=== PATIENT | female | born 2000 | race Caucasian/White ===

== ENCOUNTER 2022-11-06 18:48 | Emergency (ER) | payer OTHER, SELFPAY ==
[2022-11-06 19:01] VITALS: BP 124/75; PULSE 79; RESP 18; TEMP 37.4; O2SAT 100
--- NOTE | 2022-11-06 19:26 | ED.EPISTAXIS ---
HPI - Epistaxis General Chief complaint: Epistaxis Stated complaint: Nose Bleed Time Seen by Provider: 11/06/22 19:27 Source: patient and RN notes reviewed Mode of arrival: ambulatory Limitations: no limitations History of Present Illness HPI Narrative: 22-year-old female presented for complaints of nosebleed today, which has since resolved prior to arrival. She reports the nosebleed started after coughing. Prior to the nosebleed she reports vision loss from the left eye which lasted for 15 minutes. States it started like a kaleidoscope, then turned black, and slowly returned. Subsequently she developed a headache which lasted about 3 hours. 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 Patient reports more frequent headaches and nosebleeds over the last few months. States several headaches are precipitated by vision changes. Currently denies headache pain, vision changes, photophobia, dizziness, nausea, vomiting, fevers or chills. Denies smoking or drug use. Denies nasal trauma, blowing, sneezing, drug use, or recent illness. States she was seen in an outside ER a few weeks ago for nosebleed as well as cp and sob; denies significant findings and was told to f/u with pcp, but she has not been able to as they are about one hour away. Related Data Home Medications Medication Instructions Recorded Confirmed norethindrone 1 mg-ethinyl tablet 11/06/22 estradiol 10 mcg (24)-iron 10 mcg(2) tablet (Lo Loestrin Fe) Allergies Allergy/AdvReac Type Severity Reaction Status Date / Time No Known Allergies Allergy Verified 11/06/22 19:00 Review of Systems Review of Systems: CONSTITUTIONAL: Denies malaise, chills, sweats, fever EYES: Denies visual changes, redness, or discharge ENT: Denies present epistaxis rhinorrhea, congestion, sinus pain, otalgia, sore throat CARDIOVASCULAR: Denies chest pain, palpitations, edema RESPIRATORY: Denies dyspnea GASTROINTESTINAL: Denies abdominal pain, nausea, vomiting, diarrhea SKIN: Denies rash or itching MUSCULOSKELETAL: denies myalgia NEUROLOGIC: Denies present headache Exam Narrative: GENERAL: well-appearing HEAD: Normocephalic EYES: PERRLA, EOMI; conjunctivae clear ENT: Mucous membranes moist. No epistaxis or dried blood in nostril. No apparent source of nosebleed. TMs pearly cottrell with dull light reflex bilaterally; no tragal tenderness. Oropharynx without lesions or exudate NECK: Supple. No lymphadenopathy CHEST: Clear to auscultation, breath sounds equal. HEART: Regular rate and rhythm. No murmur heard. SKIN: Warm, dry, no rash. NEURO: Alert and oriented x3. No focal deficits. Facial sensation intact. PSYCH: Normal mood and affect Course Course Emergency Course: Patient is aware of diagnosis, understands and agrees to treatment plan. Anticipatory guidance given. Patient agrees to follow-up as directed and is aware of reasons to seek care at the emergency department. Portions of this record may have been created with voice recognition software Level of Care: Express Care Visit Vital Signs Vital signs: Vital Signs Temperature 99.4 F 11/06/22 19:01 Pulse Rate 79 11/06/22 19:01 Respiratory Rate 18 11/06/22 19:01 Blood Pressure 124/75 11/06/22 19:01 Pulse Oximetry 100 11/06/22 19:01 Oxygen Delivery Room Air 11/06/22 19:01 Temperature 99.4 F 11/06/22 19:01 Pulse Rate 79 11/06/22 19:01 Respiratory Rate 18 11/06/22 19:01 Blood Pressure 124/75 11/06/22 19:01 Pulse Oximetry 100 11/06/22 19:01 Oxygen Delivery Room Air 11/06/22 19:01 reviewed MDM - Epistaxis MDM Narrative Medical decision making narrative: Suspect ocular migraine. Patient currently denies pain, vision changes, photophobia. No epistaxis upon arrival or during encounter. BP stable. Reports headaches and nosebleeds over recent months. Today's headache resolved with Advil. Reports she was recently evaluated in an ER without significant findings. Advised to f/u closely with
== END 2022-11-06 20:06 | disposition home or self-care (01) ==
PROVIDERS: Emergency Provider Nurse Practitioner Family
DX: R04.0 Epistaxis (principal); R51.9 Headache, unspecified
CPT/HCPCS: 99211; G0463

== ENCOUNTER 2023-03-14 01:45 | Emergency (ER) | payer OTHER, SELFPAY ==
--- NOTE | 2023-03-14 01:46 | ECG_ITS ---
Measurements Intervals [place] Rate: 85 P: 44 WI: 100 QRS: 66 QRSD: 94 T: -4 QT: 347 QTc: 414 Interpretive Statements SINUS RHYTHM WITH SHORT WI INTERVAL NORMAL ECG NO PREVIOUS ECG AVAILABLE FOR COMPARISON Electronically Signed On 03-14-2023 11:26:18 CDT by Ronnie Eastman M.D.
[2023-03-14 01:54] VITALS: BP 123/78; PULSE 82; RESP 16; TEMP 36.8; O2SAT 99
[2023-03-14 02:21] LABS: Basophils Absolute Auto 0.1 K/mm3 (0.0-0.1); Basophils Percent Auto 0.6 % (0.2-1.2); Eosinophils Absolute Auto 0.3 K/mm3 (0-0.3); Eosinophils Percent Auto 2.9 % (0-4.4); Hematocrit 42.4 % (37.0-47.0); Hemoglobin 13.9 g/dL (12.0-15.0); Immature Granulocyte Absolute 0.02 K/mm3 (0.00-0.031); Immature Granulocyte Percent A 0.2 % (0-0.5); Lymphocytes Absolute Auto 3.66 K/mm3 (0.9-3.2); Lymphocytes Percent Auto 36.3 % (18.3-44.2); Mean Corpuscular HGB Conc 32.8 g/dl (32-36); Mean Corpuscular Hemoglobin 28.9 pg (26-34); Mean Corpuscular Volume 88.1 fl (80-100); Mean Platelet Volume 10.3 fl (7.4-10.4); Monocytes Absolute Auto 1.1 K/mm3 (0.1-0.6); Monocytes Percent Auto 10.5 % (2.6-8.5); Neutrophils Percent Auto 49.5 % (45.5-73.1); Platelet Count Result 279 k/mm3 (150-375); Red Blood Count 4.81 M/mm3 (4.2-5.4); Red Cell Distribution Width 13.2 % (11.5-14.5); White Blood Count 10.1 K/mm3 (4.5-10.0)
[2023-03-14 02:32] LABS: Partial Thromboplastin Time 28.6 SECONDS (22.3-36.8)
[2023-03-14 02:40] LABS: Alanine Aminotransferase 38 U/L (6-35); Albumin Level 4.3 g/dL (3.5-5.1); Alkaline Phosphatase 59 U/L (38-126); Anion Gap 5 mmol/L (8-16); Aspartate Amino Transferase 33 U/L (14-36); Bilirubin,Total 0.3 mg/dL (0.2-1.3); Blood Urea Nitrogen 10 mg/dL (7-17); Calcium 8.9 mg/dL (8.4-10.2); Carbon Dioxide 28 mmol/L (22-30); Chloride 105 mmol/L (98-107); Estimated CRCL calculation 125 ml/min; Estimated Glomerular Filt Rate > 60; Glucose 110 mg/dL (65-110); Lipase 90 U/L (23-300); Potassium 3.5 mmol/L (3.4-5.0); Sodium 138 mmol/L (137-145)
[2023-03-14 02:56] LABS: Troponin I < 0.012 ng/mL (0.000-0.034)
--- NOTE | 2023-03-14 03:30 | PC.NURSE ---
Pt called for room, no answer
== END 2023-03-14 04:51 | disposition left against medical advice (07) ==
PROVIDERS: Emergency Provider Emergency Medicine
DX: R07.89 Other chest pain (principal)
CPT/HCPCS: 36415; 80053; 83690; 84484; 85025; 85610; 85730; 93005; 99199

== ENCOUNTER 2023-04-28 11:47 | Outpatient (CLI) | payer OTHER, SELFPAY ==
[2023-04-28 14:08] LABS: Cholesterol 238 mg/dL (0-200); HDL Direct 48 mg/dL; Triglycerides 241 mg/dL (<150)
[2023-04-28 14:19] LABS: LDL Cholesterol Direct 150 mg/dL
[2023-04-28 14:25] LABS: Beta HCG Quantitative < 2.39 mIU/ML
[2023-05-01 11:24] LABS: DHEA-Sulfate 302 mcg/dL (18-391)
[2023-05-02 17:14] LABS: FSH 9.4 mIU/mL (***); Progesterone 0.4 ng/mL (***)
[2023-05-04 20:12] LABS: Estradiol, Ultrasensitive 22 pg/mL
== END 2023-04-28 11:48 | disposition home or self-care (01) ==
LOC: ANHLAB 11:49
PROVIDERS: Visit Provider Obstetrics & Gynecology
DX: R63.5 Abnormal weight gain (principal); N92.6 Irregular menstruation, unspecified; L68.0 Hirsutism
CPT/HCPCS: 36415; 80061; 82627; 82670; 83001; 83498; 84144; 84443; 84702

== ENCOUNTER 2023-06-20 00:38 | Day surgery (SDC) | payer OTHER, SELFPAY ==
[2023-06-14 11:58] VITALS: BMI 28.1
--- NOTE | 2023-06-14 12:02 | PC.NURSE ---
Report to the Outpatient Waiting Room, entrance under the green pavilion located off [facility], at time 0915 on date 06/20/23. Planned Procedure Time: 1115. Time changes happen often and if your time is changed the preop area will call you the afternoon before. - You and your visitor will be asked to self-screen and do not enter if you have any COVID symptoms. - A mask is optional within the hospital at this time. Patients may have clear liquids (water, carbonated beverages, clear teas, apple juice) until 3 hours prior to surgery with a maximum of 20 ounces. - No food from midnight until time of surgery Take the following medications with a SIP of water the morning of surgery: CONTROL DO NOT STOP ANY OF YOUR OTHER PRESCRIPTION MEDICATIONS PRIOR TO SURGERY ?EXCEPT THE FOLLOWING Medications to discontinue per physician: N/A Date to take last dose: N/A Please no make-up, nail lebanese, hairspray, perfume, deodorant, or body powder the day of surgery. No jewelry (including any body piercings) or valuables the day of surgery, leave them at home. Please take a shower or bath the night before, or the morning of, surgery with an antibacterial soap. Wear comfortable, loose fitting clothing. - Jewelry must be removed prior to entering the operating room. Rings and piercings that are not removed may be cut off. - The hospital will not accept responsibility for valuables. - Please leave all valuables, including medications, at home the day of surgery. If you are going home after surgery, a licensed medical driver must drive you home. - NO public transportation without another adult if you receive anesthesia. - We recommend that an adult stay with you for 24 hours following discharge. - We also recommend that you do not drive, make important decision, drink alcoholic beverages, or take any drugs that were not prescribed by your health care provider for at least 24 hours after your discharge time. Follow any additional instructions given to you from your surgeon. If you or anyone in your household have experienced Covid symptoms in the past week, please notify your surgeon or the nurse liaison at the phone number below for possible testing. Telephone instructions given to PT Deanna SARMIENTO and asked if any additional questions and then verbalized understanding. Patient advised to call surgeon office or pre surgery nurse liaison [phone] if any additional questions.
--- NOTE | 2023-06-19 15:39 | PM.IMHP ---
H&P: HPI History of Present Illness Date/Time: 06/19/23 15:39 Chief Complaint: undesired future fertility Narrative: Leni is a 22yo P1001, who presents for surgery. She reports that she gained 100lbs in ; has been having issues since delivery of her son 3 years ago. She is on Lo Loestrin but takes it continuously to skip cycles. She reports her cycles were very painful. She reports hair growth on her face, neck, chest. She is sexually active. She no longer desires future fertility and is wanting to proceed with tubal. Review of Systems Constitutional: Constitutional: Denies chills, Denies fever(s) and Denies headache(s) Eyes: Eyes: Denies change in vision ENT: Denies dizziness and Denies headache(s) Cardiovascular: Cardiovascular: Denies chest pain and Denies dyspnea Respiratory: Respiratory: Denies cough and Denies dyspnea Gastrointestinal: Gastrointestinal: Denies abdominal pain and Denies change in stool character Genitourinary: Genitourinary: Reports abnormal menses, Reports pelvic pain, Denies vaginal discharge, Denies vaginal odor and Denies vaginal pruritus Neurologic: Denies dizziness and Denies headache(s) Psychiatric: Psychiatric: Denies anxiety and Denies depression [facility] Past Medical History Medical History IBS (irritable bowel syndrome) Family History Family History Other Heart disease Lung cancer Social History Social History Smoking status: Never smoker Alcohol intake: never Substance use: never Substance use type: does not use Lack of Transportation: No Lack of Food: Never True Current Housing: I Have Housing Concerned About Future Housing: No Difficulty Paying Gas/Electric Bills: No Difficulty Paying for Meds: No Currently Unemployed: No Education: High School Diploma/GED Difficulty w/ Childcare or Family Care: No Living arrangements: with family Additional living arrangements comments: boyfriend & son Occupation/Education: occupation 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 Gender identity (if verbalized by the patient): Female Sexual Orientation (if Verbalized by the Patient): Straight or Heterosexual Spiritual care concerns: No Meds Home Medications and Allergies Home Medications Medication Instructions Recorded Confirmed Type norethindrone 1 mg-ethinyl 1 tablet PO DAILY 05/19/23 06/14/23 History estradiol 20 mcg (21)-iron 75 mg (7) tablet (10/22 (28)) Allergies Allergy/AdvReac Type Severity Reaction Status Date / Time No Known Allergies Allergy Verified 06/14/23 11:57 Exam Const: General: cooperative, healthy appearing, comfortable and no acute distress Orientation/consciousness: patient oriented x3 Resp: Effort & Inspection: normal respiratory effort Cardio: Rate: regular rate GI: Inspection: normal to inspection GI Palp: No abdominal tenderness and Yes Soft to palpation : Other: deferred to OR Skin: General skin exam: normal color Neuro: General: patient oriented x3 Extrem: General: normal to inspection Psych: Appearance: grossly normal Affect: normal affect Attitude: cooperative Assessment and Plan Assessment and plan (1) Encounter for sterilization: Code(s): Z30.2 - Encounter for sterilization Status: Acute Plan - not all labs were completed; ones tested were normal--- 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 pt voiced understanding and realizes this is permanent sterilization - proceed with laparoscopic bilateral salpingectomy - Would also remove/fulgurate any endometrial implants if any endometriosis is noted
[2023-06-20] VITALS (9 sets, daily range): BP systolic 105–122; BP diastolic 61–82; PULSE 77–93; RESP 13–20; TEMP 36.5–36.7; O2SAT 95–100
--- NOTE | 2023-06-20 07:13 | WPDHPUPDATE1 ---
History and Physical Update Update Date/Time: 06/20/23 07:13 History and Physical has been reviewed, including an updated exam of the patient. There are NO changes in the patient's condition. Risks, benefits, and alternatives have been discussed and questions answered. Patient agrees to proceed with procedure.
--- NOTE | 2023-06-20 10:03 | P.PNAN_ITS ---
Anes - Initial Pre Proc Eval Procedure: Operation Date: 06/20/23 11:15 Proposed Procedures p Bilateral Laparoscopic Salpingectomy - Shara Santos MD Date/Time: 06/20/23 10:03 Surgeon: Shara Santos MD Pre Op Diagnosis: desires sterilization Patient Data Age: 22 Gender: F Height: 1.73 m Weight: 85 kg Allergies Allergy/AdvReac Type Severity Reaction Status Date / Time No Known Allergies Allergy Verified 06/20/23 09:57 Home Medications Medication Instructions Recorded Confirmed Type norethindrone 1 mg-ethinyl 1 tablet PO DAILY 05/19/23 06/20/23 History estradiol 20 mcg (21)-iron 75 mg (7) tablet (10/22 (28)) Patient hx anesthesia problems: none Family hx anesthesia problems: none Results Review: All pre-operative results and documents have been reviewed as part of the pre- operative evaluation. [facility] Past Medical History Medical History IBS (irritable bowel syndrome) Family History Family History Other Heart disease Lung cancer Social History Social History Smoking status: Never smoker Alcohol intake: never Substance use: never Substance use type: does not use Lack of Transportation: No Lack of Food: Never True Current Housing: I Have Housing Concerned About Future Housing: No Difficulty Paying Gas/Electric Bills: No Difficulty Paying for Meds: No Currently Unemployed: No Education: High School Diploma/GED Difficulty w/ Childcare or Family Care: No Living arrangements: with family Additional living arrangements comments: boyfriend & son Occupation/Education: occupation Additional occupation/education comments: [employer] Gender identity (if verbalized by the patient): Female Sexual Orientation (if Verbalized by the Patient): Straight or Heterosexual Spiritual care concerns: No Anes - Eval Final PreProcedure Day of Procedure 06/20/23 10:03 Patient weight: overweight Heart: regular rate and rhythm Lungs: clear to auscultation Airway: Mallampati scale class II Neurological: alert and oriented Last oral intake: >/= 8 hours ASA classification: II Emergent: no Anesthetic plan: proceed Anesthesia type and monitoring: general ETT and standard monitoring Results Review: All pre-operative results and documents have been reviewed as part of the pre- operative evaluation. Informed Consent: The patient's anesthetic plan and its attendant risks and benefits were discussed with the patient/family/POA. Questions were solicited and answers provided to the satisfaction of the patient/family/POA.
[2023-06-20] MEDS: KETOROLAC 15 MG/ML VIAL (*BKC) IV PUSH (10:45)
[2023-06-20] MEDS: LACTATED RINGERS 1,000 ML 30 ML IV CONT ×2 (10:45→12:33)
[2023-06-20] MEDS: ACETAMINOPHEN 500 MG TABLET 1000 MG PO (10:45)
[2023-06-20] MEDS: BUPIVACAINE/EPINEPHRINE 0.5% 30 ML VIAL INFILTRATE (11:41)
--- NOTE | 2023-06-20 11:48 | P.OP_ITS ---
Procedure Note - Detailed Date of Procedure 06/20/23 Pre-op Diagnosis desires sterilization Post-op Diagnosis Same Procedure Performed Laparoscopic bilateral salpingectomy Surgeon Shara Santos MD Anesthesia General and Local (20cc of 0.5% Marcaine w/ epi) Findings Uterus sounded to 8cm, normal appearing cervix, normal fallopian tubes and ovaries bilaterally. Small amount of adhesions of the colon to the left pelvic side wall which were taken down. Good hemostasis at end of case. Description of Procedure Leni was taken to the operating room where she was placed under general endotracheal anesthesia without complications. She was then prepped and draped in the usual sterile fashion in the dorsal lithotomy position with her legs in low Bassem stirrups and her arms tucked at her side with a strap over her chest. A time-out was performed and no preoperative antibiotics were indicated. My attention was turned down below where a bivalve speculum was then placed within the vagina where the cervix was easily identified. The anterior lip of the ce rvix was grasped with a single-tooth tenaculum, the uterus was sounded, and a diagnostic uterine manipulator was placed without complications. My gloves were changed and my attention was turned to her abdomen. An umbilical incision was made, and a 5 mm trocar was placed under direct visualization without complications. Once intra-abdominal placement was confirmed the abdomen was insufflated with carbon dioxide gas. She was then placed in Trendelenburg and two additional 5 mm ports were placed in the left and right lower quadrants under direct visualization without complications. The above findings were noted. The left fallopian tube was then elevated and the mesosalpinx was serially clamped, coagulated, transected using the LigaSure device until the proximal end of the fallopian tube was reached. The proximal end of the fallopian tube was cross clamped, coagulated, and transected. The tube was then removed from the abdomen. The same procedure was then performed on the right si de without any complications. Good hemostasis was noted. A pelvic survey was performed and no endometriosis was noted. The descending colon was noted to be more adhered to the left pelvic side wall and those adhesions were taken down without issue. All instruments were removed from the abdomen. The insufflation was released and the trocars were removed. The 3 laparoscopic incision sites were reapproximated using 4-0 Monocryl and covered with Dermabond. The incisions were then infiltrated using 0.5% Marcaine. The uterine manipulator was removed. Sponge, lap, instrument, and needle counts were correct at the end of the procedure. Patient was awoken from general anesthesia and taken to recovery in a stable condition with plans of same-day discharge home. Estimated Blood Loss 5 Pathology Yes (left and right fallopian tubes) Complications No immediate complications Condition Stable Disposition Same day [facility] Billing Surgery - Charge Forward: Surgery Billing
[2023-06-20] MEDS: fentaNYL CITRATE INJ (*CRX) 100 MCG/2 ML VIAL 25 MCG IV PUSH ×4 (12:11→12:40)
[2023-06-20] MEDS: oxyCODONE HCL (*CRX) 5 MG TAB IR PO (13:30)
== END 2023-06-20 14:25 | disposition home or self-care (01) ==
PROVIDERS: Visit Provider Obstetrics & Gynecology
PROC: (CPT 49320; principal; 2023-06-20 11:15)
DX: Z30.2 Encounter for sterilization (principal); N83.8 Other noninflammatory disorders of ovary, fallopian tube and broad ligament; N73.6 Female pelvic peritoneal adhesions (postinfective)
CPT/HCPCS: 58661; 88302; A9270; J0330; J1100; J1885; J2250; J2405; J2704; J3010; J7030; J7120

== ENCOUNTER 2023-08-06 20:50 | Emergency (ER) | payer OTHER, SELFPAY ==
--- NOTE | ~2023-08-06 | CT_ITS ---
EXAMINATION: CT abdomen pelvis w con INDICATION: Abdominal pain TECHNIQUE: Computed tomographic images of the abdomen and pelvis were obtained after the administrati on of 100 cc of Omnipaque 350 intravenous contrast. The dose-length product (DLP) was 785.32 mGy-cm. Automated exposure control and iterative reconstruction technique were employed. COMPARISON: None available FINDINGS: Minimal dependent atelectasis is present in the lung bases. The heart size is normal. The l iver, spleen, pancreas, gallbladder, and adrenal glands are normal. Hypoattenuating lesions in the ki dneys, measuring up to 2 mm on the right, are too small to characterize but likely represent cysts. T here is an umbilical hernia containing fat. No pathologically enlarged abdominal or pelvic lymph node s are identified. There is no free intraperitoneal gas or evidence of bowel obstruction. The appendix is normal. IMPRESSION: 1. No CT correlate for the patient's symptoms. Reviewed, dictated and finalized at location F. R TRANSFORMER REPAIR SUPERVISOR
[2023-08-06 20:52] VITALS: BP 142/87; PULSE 80; RESP 20; TEMP 36.6; O2SAT 98
[2023-08-06 20:57] VITALS: BP 131/92; PULSE 79; RESP 20; TEMP 36.6; O2SAT 100
[2023-08-06 21:43] LABS: Basophils Absolute Auto 0.1 K/mm3 (0.0-0.1); Basophils Percent Auto 0.7 % (0.2-1.2); Eosinophils Absolute Auto 0.4 K/mm3 (0-0.3); Hematocrit 45.8 % (37.0-47.0); Hemoglobin 14.7 g/dL (12.0-15.0); Immature Granulocyte Absolute 0.03 K/mm3 (0.00-0.031); Immature Granulocyte Percent A 0.3 % (0-0.5); Lymphocytes Absolute Auto 2.87 K/mm3 (0.9-3.2); Mean Corpuscular HGB Conc 32.1 g/dl (32-36); Mean Corpuscular Hemoglobin 28.2 pg (26-34); Mean Corpuscular Volume 87.9 fl (80-100); Mean Platelet Volume 10.1 fl (7.4-10.4); Monocytes Absolute Auto 0.9 K/mm3 (0.1-0.6); Monocytes Percent Auto 7.7 % (2.6-8.5); Neutrophils Absolute Auto 7.7 K/mm3 (1.3-6.7); Neutrophils Percent Auto 64.3 % (45.5-73.1); Platelet Count Result 317 k/mm3 (150-375); Red Blood Count 5.21 M/mm3 (4.2-5.4); Red Cell Distribution Width 12.9 % (11.5-14.5)
[2023-08-06 21:49] LABS: Appearance Urine Cloudy (Clear); Bacteria Urine 1+ /hpf; Bilirubin Urine Negative (Negative); Blood Urine 1+ (Negative); Color Urine Yellow (Yellow); Glucose Urine UA Negative (Negative); Ketones Urine Negative (Negative); Leukocyte Esterase Ur Trace LEU/UL (Negative); Nitrate Urine Negative (Negative); Non Pathogenic Casts 0-2; Protein Urine Negative (Negative); Specific Grav Ur 1.013 (1.001-1.035); Squamous Epithelial Cell Urine Moderate /hpf (Few); Urobilinogen Urine 0.2 mg/dL (<2.0); pH Urine 5.5 (5.0-9.0)
[2023-08-06 21:50] LABS: Add Urine Microscopic? YES
[2023-08-06 21:53] LABS: Alanine Aminotransferase 25 U/L (6-35); Albumin Level 4.6 g/dL (3.5-5.1); Alkaline Phosphatase 79 U/L (38-126); Anion Gap 5 mmol/L (8-16); Aspartate Amino Transferase 20 U/L (14-36); Bilirubin,Total 0.4 mg/dL (0.2-1.3); Blood Urea Nitrogen 9 mg/dL (7-17); Calcium 9.4 mg/dL (8.4-10.2); Carbon Dioxide 29 mmol/L (22-30); Chloride 104 mmol/L (98-107); Estimated CRCL calculation 97 ml/min; Estimated Glomerular Filt Rate > 60; Glucose 102 mg/dL (65-110); Lipase 85 U/L (23-300); Potassium 3.9 mmol/L (3.4-5.0); Sodium 138 mmol/L (137-145)
--- NOTE | 2023-08-06 22:05 | ED.ABDPAIN ---
HPI - Abdominal Pain General Chief Complaint: Abdominal Pain Stated Complaint: abdominal pain Time Seen by Provider: 08/06/23 21:44 History of Present Illness HPI narrative: Patient is a 22-year-old female with history of IV as here with abdominal pain. She states that abdominal pain is been present since yesterday and has progressively worsened. She notes that it is located in her upper abdomen. She has been having difficulty passing flatulence since this morning. This morning she had a very small loose bowel movement and otherwise has had no bowel function. She endorses some associated nausea and vomiting. Only prior abdominal surgery was a bilateral salpingectomy in June of this year for elective sterilization. She denies any fever, chills. She denies any cough or congestion. She denies any urinary symptoms. No vaginal bleeding or discharge, no concern for STI. Related Data Allergies Allergy/AdvReac Type Severity Reaction Status Date / Time No Known Allergies Allergy Verified 08/06/23 21:32 Review of Systems Review of Systems: All systems reviewed & are unremarkable except as noted in HPI and below PMFSH Past Medical History Medical History IBS (irritable bowel syndrome) Surgical History Surgical History History of tubal ligation 06/20/2023 Family History Family History Other Heart disease Lung cancer Social History Social History Smoking status: Never smoker Alcohol intake: never Substance use: never Substance use type: does not use Lack of Transportation: No Lack of Food: Never True Current Housing: I Have Housing Concerned About Future Housing: No Difficulty Paying Gas/Electric Bills: No Difficulty Paying for Meds: No Currently Unemployed: No Education: High School Diploma/GED Difficulty w/ Childcare or Family Care: No Living arrangements: with family Additional living arrangements comments: boyfriend & son Occupation/Education: occupation 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 HEAD: Normocephalic, atraumatic. EYES: PERRLA and EOMI. ENT: Nares clear. Mucous membranes moist. NECK: Supple. CHEST: Clear to auscultation. No respiratory distress. HEART: Regular rate and rhythm. Normal peripheral pulses. ABDOMEN: Soft, diffusely tender, worse in the epigastrium, guarding, no rebound. EXTREMITIES: Normal range of motion. No edema. SKIN: Warm, dry, no rash. NEURO: No focal deficits. Alert and oriented x3. PSYCH: Normal mood and affect. Course Course Emergency Course: Chart review performed. Patient here with abdominal pain. Triage vitals normal. She appears to have had a bilateral salpingectomy in June 2023 for sterilization. Bedside negative. Triage workup reviewed. WBC 12, LFTs normal. Possible UTI on UA. Patient seen evaluated, appears to be in pain. Concern for possible bowel obstruction, intra-abdominal acute process including infection or less likely perforation given significant tenderness on exam. Patient made NPO, Zofran, morphine, IV fluids have been ordered. CT shows no acute abnormalities. The results of pertinent diagnostic studies and exam findings were discussed. The patient?s provisional diagnosis and plan of care were discussed with the patient and present family. Advised that she should take stool softeners and MiraLax. She developed the primary care doctor early next week. Should return should any of her symptoms worsen. The patient and/or presen
[2023-08-06 22:17] VITALS: BP 120/88; PULSE 74; RESP 18; O2SAT 100
[2023-08-06] MEDS: MORPHINE SULFATE (*CRX) 4 MG/ML INJ IV PUSH (22:17)
[2023-08-06 22:30] VITALS: BP 123/79; PULSE 70; RESP 16; O2SAT 100
[2023-08-06 22:45] VITALS: BP 121/80; PULSE 76; RESP 16; O2SAT 100
[2023-08-07] MEDS: MORPHINE SULFATE (*CRX) 4 MG/ML INJ IV PUSH (00:32)
[2023-08-07 00:45] VITALS: BP 130/84; PULSE 71; RESP 16; O2SAT 99
[2023-08-07 01:23] VITALS: BP 125/95; PULSE 78; RESP 17; O2SAT 100
[2023-08-07] MEDS: CEPHALEXIN 500 MG CAPSULE PO (01:28)
[2023-08-07] MEDS: polyethylene glycoL 3350 17 GM POWD.PACK PO (01:29)
== END 2023-08-07 01:25 | disposition home or self-care (01) ==
PROVIDERS: Emergency Provider Student in an Organized Health Care Education/Training Program
DX: N39.0 Urinary tract infection, site not specified (principal); R10.84 Generalized abdominal pain; K58.1 Irritable bowel syndrome with constipation
CPT/HCPCS: 36415; 74177; 80053; 81001; 81025; 83690; 85025; 87086; 87088; 96374; 99284; A9270; J2270; Q9967

== ENCOUNTER 2023-09-28 08:40 | Emergency (ER) | payer OTHER, SELFPAY ==
--- NOTE | ~2023-09-28 | CT_ITS ---
EXAMINATION: CT abdomen pelvis w con DATE: 09/28/2023 11:10 INDICATION: Nausea and vomiting. TECHNIQUE: Computed tomography (CT) of the abdomen and pelvis was performed with 100 cc Omnipaque 350 intravenous contrast. The dose-length product was 634.73 mGy-cm. Automated exposure control and iter ative reconstruction technique were employed. COMPARISON: CT dated 08/06/2023. FINDINGS: Lung bases are unremarkable. Heart size normal. No significant pleural or pericardial effus ion. Fatty infiltration of the liver. The spleen, pancreas, adrenal glands and kidneys are unremarkable. G allbladder is present. Small fat-containing umbilical hernia. There are enlarged periuterine and left ovarian veins, consistent with pelvic congestion syndrome. Nonobstructive bowel pattern. No abnormal pelvic masses or fluid collections. Gallbladder is present. No free air or free fluid. IMPRESSION: 1. Enlarged. Uterine and left ovarian veins, consistent with pelvic congestion syndrome. Clinically c orrelate.. 2: Fatty infiltration of the liver. Reviewed, dictated and finalized at location B. [facility] IMPRESSION: 1. Enlarged. Uterine and left ovarian veins, consistent with pelvic congestion syndrome. Clinically correlate.. 2: Fatty infiltration of the liver.
--- NOTE | ~2023-09-28 | XR_ITS ---
EXAMINATION: XR chest 2V DATE: 09/28/2023 12:59 INDICATION: Vomiting. Diarrhea. TECHNIQUE: Frontal and lateral views of the chest were obtained. COMPARISON: CT abdomen and pelvis 09/28/2023 FINDINGS: There is no pneumonia, pleural effusion, or pneumothorax. The heart size is normal. IMPRESSION: 1. No acute cardiopulmonary disease. Reviewed, dictated and finalized at location E. CTOR OF PERSONNEL
[2023-09-28 08:52] VITALS: BP 138/68; PULSE 102; RESP 18; TEMP 36.4; O2SAT 99
[2023-09-28 10:35] LABS: Hematocrit 49.9 % (37.0-47.0); Hemoglobin 16.1 g/dL (12.0-15.0); Mean Corpuscular HGB Conc 32.3 g/dl (32-36); Mean Corpuscular Hemoglobin 28.2 pg (26-34); Mean Corpuscular Volume 87.5 fl (80-100); Mean Platelet Volume 10.1 fl (7.4-10.4); Platelet Count Result 354 k/mm3 (150-375); Red Cell Distribution Width 13.2 % (11.5-14.5); White Blood Count 23.1 K/mm3 (4.5-10.0)
[2023-09-28 10:38] LABS: Appearance Urine Cloudy (Clear); Bacteria Urine Rare /hpf; Bilirubin Urine Negative (Negative); Blood Urine 1+ (Negative); Color Urine Yellow (Yellow); Glucose Urine UA Negative (Negative); Ketones Urine Trace mg/dL (Negative); Leukocyte Esterase Ur Negative LEU/UL (Negative); Nitrate Urine Negative (Negative); Non Pathogenic Casts 0-2; Protein Urine Trace mg/dL (Negative); Squamous Epithelial Cell Urine Few /hpf (Few); Urobilinogen Urine 0.2 mg/dL (<2.0); WBC Urine 0-5 /hpf; pH Urine 5.5 (5.0-9.0)
[2023-09-28] MEDS: ONDANSETRON INJ 4 MG/2 ML VIAL IV PUSH (10:42)
[2023-09-28] MEDS: SODIUM CHLORIDE 0.9% IV 1,000 ML 999 ML IV CONT ×2 (10:42→12:03)
--- NOTE | 2023-09-28 10:45 | ECG_ITS ---
Measurements Intervals [place] Rate: 92 P: 32 NH: 104 QRS: 64 QRSD: 87 T: -71 QT: 339 QTc: 421 Interpretive Statements SINUS RHYTHM WITH SHORT NH INTERVAL ST DEVIATION AND MODERATE T-WAVE ABNORMALITY, CONSIDER ANTEROLATERAL ISCHEMIA [-0.1+ mV T WAVE IN V3-V6] ST DEVIATION AND MODERATE T-WAVE ABNORMALITY, CONSIDER INFERIOR ISCHEMIA [-0.1+ mV T WAVE IN II/aVF] COMPARED TO ECG 03/14/2023 01:52:04 NO SIGNIFICANT CHANGES Electronically Signed On 09-28-2023 21:00:16 BLUE PRINT CONTROL CLERK by Shaye Epperson M.D.
--- NOTE | 2023-09-28 10:48 | ED.NAVMDI ---
HPI - Nausea/Vomiting/Diarrhea General Chief complaint: Nausea/Vomiting/Diarrhea Stated complaint: vomiting, diarrhea Time Seen by Provider: 09/28/23 10:11 Source: patient Mode of arrival: ambulatory Limitations: no limitations History of Present Illness HPI Narrative: This is a 23 year old female that presents to the ER for nausea, vomiting and diarrhea. Reports she started to have some chest discomfort last night. Then she woke up with vomiting and diarrhea. Reports several episodes. Her child has been sick with similar symptoms. Reports she did have a fever and mild dysuria. Denies hematuria. Related Data Allergies Allergy/AdvReac Type Severity Reaction Status Date / Time No Known Allergies Allergy Verified 09/28/23 10:43 Review of Systems Review of Systems: CONSTITUTIONAL: Denies fever CARDIOVASCULAR: Reports chest pain RESPIRATORY: Denies dyspnea. GASTROINTESTINAL: Reports abdominal pain, nausea, vomiting, and diarrhea. GENITOURINARY: Reports dysuria. Denies hematuria. All systems reviewed & are unremarkable except as noted in HPI and below PMFSH Past Medical History Medical History IBS (irritable bowel syndrome) Surgical History Surgical History History of tubal ligation 06/20/2023 Family History Family History Other Heart disease Lung cancer Social History Social History Smoking status: Never smoker Alcohol intake: never Substance use: never Substance use type: does not use Lack of Transportation: No Lack of Food: Never True Current Housing: I Have Housing Concerned About Future Housing: No Difficulty Paying Gas/Electric Bills: No Difficulty Paying for Meds: No Currently Unemployed: No Education: High School Diploma/GED Difficulty w/ Childcare or Family Care: No Living arrangements: with family Additional living arrangements comments: boyfriend & son Occupation/Education: occupation Additional occupation/education comments: [employer] Gender identity (if verbalized by the patient): Female Sexual Orientation (if Verbalized by the Patient): Straight or Heterosexual Spiritual care concerns: No Exam Narrative: GENERAL: Well-appearing, well-nourished, and in no acute distress. HEAD: Normocephalic, atraumatic. EYES: EOMI. CHEST: Clear to auscultation. No respiratory distress. No wheezes rales or rhonchi HEART: Regular rate and rhythm. No murmur heard. Normal peripheral pulses. ABDOMEN: Soft, nontender, nondistended, normal active bowel sounds. EXTREMITIES: Normal range of motion. No edema. SKIN: Warm, dry, no rash. NEURO: No focal deficits. Alert and oriented x3. PSYCH: Normal mood and affect Course Vital Signs Vital signs: Vital Signs Temperature 97.6 F 09/28/23 08:52 Pulse Rate 102 H 09/28/23 08:52 Respiratory Rate 18 09/28/23 08:52 Blood Pressure 138/68 09/28/23 08:52 Pulse Oximetry 99 09/28/23 08:52 Oxygen Delivery Room Air 09/28/23 08:52 Temperature 97.6 F 09/28/23 08:52 Pulse Rate 102 H 09/28/23 08:52 Respiratory Rate 18 09/28/23 08:52 Blood Pressure 138/68 09/28/23 08:52 Pulse Oximetry 99 09/28/23 08:52 Oxygen Delivery Room Air 09/28/23 08:52 MDM - Nausea/Vomiting/Diarrhea MDM Narrative Medical decision making narrative: This is a 23 year old female that presents to the ER for abdominal pain, nausea, vomiting. She is afebrile and nontoxic appearing. Mildly tachycardic upon arrival. This normalized with IV fluids. CBC with leukocytosis to 23.1. Also shows hemoconcentration. Metabolic panel without concerning findings. Lipase is normal. UA without evidence of infection. Influenza and COVID screens are negative. Bedside test is negative. CT scan abdomen pelvis is without acut
[2023-09-28 10:49] LABS: Band Neutrophils Percent 11 % (0-6); Lymphocytes Absolute Manual 1.61 K/mm3 (1.1-4.5); Monocytes Absolute Manual 1.61 K/mm3 (0.1-0.90); Monocytes Percent Manual 7 % (3-9); Neutrophils Absolute Manual 19.86 K/mm3 (1.7-7.2); Neutrophils Percent Manual 75 % (46-73); Platelet Estimate Adequate (Adequate); Schistocytes None Seen (NORMAL); Total Cells Counted 100
[2023-09-28 10:51] LABS: Add Urine Microscopic? YES
[2023-09-28 10:53] LABS: Alanine Aminotransferase 35 U/L (6-35); Alkaline Phosphatase 98 U/L (38-126); Anion Gap 15 mmol/L (8-16); Aspartate Amino Transferase 28 U/L (14-36); Bilirubin,Total 0.7 mg/dL (0.2-1.3); Blood Urea Nitrogen 16 mg/dL (7-17); Carbon Dioxide 24 mmol/L (22-30); Chloride 101 mmol/L (98-107); Estimated CRCL calculation 96 ml/min; Estimated Glomerular Filt Rate > 60; Glucose 141 mg/dL (65-110); Lipase 65 U/L (23-300); Potassium 4.2 mmol/L (3.4-5.0); Sodium 140 mmol/L (137-145)
[2023-09-28 11:08] LABS: Influenza A QL RT-PCR Negative (Negative); Influenza B QL RT-PCR Negative (Negative); RSV RNA, RT-PCR Negative (Negative); SARS-CoV-2 RNA PCR Negative (Negative)
--- NOTE | 2023-09-28 11:37 | PC.NURSE ---
added on trop 1 baseline at 1048 and called again at 1135 to remind lab to run it
[2023-09-28] MEDS: FAMOTIDINE 20 MG/2 ML VIAL IV PUSH (12:03)
--- NOTE | 2023-09-28 12:14 | PC.NURSE ---
lab contacted regarding add on troponin. states someone had already called but they would get working on it.
[2023-09-28 12:35] LABS: Troponin I < 0.012 ng/mL (0.000-0.034)
== END 2023-09-28 14:28 | disposition home or self-care (01) ==
PROVIDERS: Emergency Provider Physician Assistant
DX: K76.0 Fatty (change of) liver, not elsewhere classified (principal); N94.89 Other specified conditions associated with female genital organs and menstrual cycle; R11.2 Nausea with vomiting, unspecified; R10.13 Epigastric pain; Z20.822 Contact with and (suspected) exposure to COVID-19
CPT/HCPCS: 36415; 71046; 74177; 80053; 81001; 81025; 83690; 84484; 85025; 87637; 93005; 96361; 96374; 96375; 99284; J2405; J7030; Q9967

== ENCOUNTER 2023-12-14 16:14 | Emergency (ER) | payer OTHER, SELFPAY ==
[2023-12-14 16:27] VITALS: BP 140/65; PULSE 79; RESP 16; TEMP 36.7; O2SAT 99
--- NOTE | 2023-12-14 16:27 | ED.URI ---
HPI - URI/Sore Throat General Chief Complaint: Upper Respiratory Infection Stated Complaint: cough,sore throat,diarrhea Time Seen by Provider: 12/14/23 16:27 Source: patient Mode of arrival: ambulatory Limitations: no limitations History of Present Illness HPI Narrative: Leni is a 23-year-old female patient presenting to the clinic today with complaints of cough, sore throat, and diarrhea times 2-3 days. She reports highest fever was 101. MD elicited complaint: sore throat and nasal congestion Related Data Home Medications Medication Instructions Recorded Confirmed No Home Medications 12/14/23 12/14/23 Allergies Allergy/AdvReac Type Severity Reaction Status Date / Time No Known Allergies Allergy Verified 12/14/23 16:38 Review of Systems Review of Systems: Pertinent positives per HPI. Patient denies any rash, headache, visual changes, dizziness,shortness of breath, chest pain, palpitations, nausea, vomiting, diarrhea, constipation, abdominal pain, or any urinary issues. [facility] Past Medical History Medical History IBS (irritable bowel syndrome) Surgical History Surgical History History of tubal ligation 06/20/2023 Family History Family History Other Heart disease Lung cancer Social History Social History Smoking status: Never smoker Alcohol intake: never Substance use: never Substance use type: does not use Lack of Transportation: No Lack of Food: Never True Current Housing: I Have Housing Concerned About Future Housing: No Difficulty Paying Gas/Electric Bills: No Difficulty Paying for Meds: No Currently Unemployed: No Education: High School Diploma/GED Difficulty w/ Childcare or Family Care: No Living arrangements: with family Additional living arrangements comments: boyfriend & son Occupation/Education: occupation 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 There is no relevant family history pertinent to the patient complaint. Exam Narrative: General: Well-developed, well nourished, in no apparent distress Head: Normocephalic, atraumatic Eyes: Pupils equally round and reactive to light bilaterally, EOM intact, sclera and conjunctive clear, no discharge, lids normal Ears: TMs intact and congested, ear canals clear, no drainage, grossly hearing normal. Nose: Nares patent, clear nasal discharge, no inflammation, no sinus tenderness. Mouth: Oropharynx red without lesions or masses, good dentition, MMM. Neck: Supple, trachea midline, no enlargement of anterior or posterior cervical nodes, no thyroid masses or goiter palpable. Cardio: Regular rate and rhythm, s1 and s2 normal, no murmur appreciated. Resp: Clear to auscultation bilaterally anteriorly and posteriorly, no rhonchi, rales, wheezing or rubs Course Course Emergency Course: Portions of this record may have been created with voice recognition software. Level of Care: Express Care Visit Vital Signs Vital signs: Vital signs reviewed MDM - URI/Sore Throat MDM Narrative Medical decision making narrative: At the time of visit patient is resting comfortably on the exam table. Patient appears to be nontoxic. Labs: COVID, flu, and strep test was performed. Strep and COVID testing was negative. Influenza test was positive for influenza A. Plan: I suspect patient has influenza A. Supportive measures were discussed with the patient and they voiced under
== END 2023-12-14 17:01 | disposition home or self-care (01) ==
PROVIDERS: Emergency Provider Nurse Practitioner Family
DX: J10.1 Influenza due to other identified influenza virus with other respiratory manifestations (principal); Z20.822 Contact with and (suspected) exposure to COVID-19
CPT/HCPCS: 87081; 87426; 87804; 87880; 99213; G0463

== ENCOUNTER 2024-02-06 07:55 | Outpatient (CLI) | payer OTHER, SELFPAY ==
--- NOTE | ~2024-02-06 | US_ITS ---
Ultrasound of the left breast Clinical history: Palpable mass TECHNIQUE: Targeted sonographic imaging of the left breast was performed to assess the area of clinic al concern. FINDINGS: At the 9:00 position left breast, 7 cm from the nipple, there is a 1.5 x 0.9 x 1.3 cm mass. This is mildly lobulated, circumscribed borders. Lesion is hypoechoic, but homogeneous, with mild po sterior through transmission. IMPRESSION: 1. 5 x 0.9 x 1.3 cm solid mass at the area of clinical concern, as detailed above. Imaging characteri stics suggest a benign lesion, and patient reports that the lesion has been present for one to 2 year s without interval change. 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 Biopsy could be considered to establish a histologic aggie gnosis given the presence of a solid palpable mass, but again, the imaging characteristics and report ed clinical history are most consistent with benign lesion. BI-RADS 3: Probably benign. Six-month follow-up ultrasound recommended Reviewed, dictated and finalized at location M. IMPRESSION: 1. 5 x 0.9 x 1.3 cm solid mass at the area of clinical concern, as detailed abo ve. Imaging characteristics suggest a benign lesion, and patient reports that t he lesion has been present for one to 2 years without interval change. 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 Biopsy could be considered to establish a histo logic diagnosis given the presence of a solid palpable mass, but again, the corey ging characteristics and reported clinical history are most consistent with reanna ign lesion. BI-RADS 3: Probably benign. Six-month follow-up ultrasound recommended
== END 2024-02-06 07:56 | disposition home or self-care (01) ==
LOC: ANHIMG 07:55
PROVIDERS: Visit Provider Obstetrics & Gynecology
DX: N63.24 Unspecified lump in the left breast, lower inner quadrant (principal)
CPT/HCPCS: 76642

== ENCOUNTER 2024-02-29 09:32 | Outpatient (CLI) | payer OTHER, SELFPAY ==
[2024-03-02 19:58] LABS: Testosterone Total 19 ng/dL (2-45)
== END 2024-02-29 09:33 | disposition home or self-care (01) ==
LOC: ANHLAB 09:34
PROVIDERS: Visit Provider Obstetrics & Gynecology
DX: N92.6 Irregular menstruation, unspecified (principal)
CPT/HCPCS: 36415; 84403

== ENCOUNTER 2024-03-23 14:36 | Outpatient (CLI) | payer OTHER, SELFPAY ==
--- NOTE | ~2024-03-23 | US_ITS ---
US breast LT limited 03/23/2024 15:13 Indication: Increasing left breast pain Procedure: High-resolution Limited ultrasound of the left breast Comparison: Ultrasound dated 02/06/2024 Findings: There is been slight increased size of left breast mass at 9:00, 7 cm from the nipple with slightly lobulated margins. This mass measures 1.6 x 1.2 x 1.1 cm compared with 1.5 x 1.3 x 0.9 cm on prior examination. There is internal vascularity. No posterior features. Parallel orientation. Impression: 1: Slightly increased size of left breast mass at 9:00, 7 cm from the nipple with echogenic hilum. BI-RADS CATEGORY 4-SUSPICIOUS ABNORMALITY RECOMMENDATION: Recommend ultrasound-guided biopsy. Reviewed, dictated and finalized at location B. Impression: 1: Slightly increased size of left breast mass at 9:00, 7 cm from the nipple wi th echogenic hilum. BI-RADS CATEGORY 4-SUSPICIOUS ABNORMALITY RECOMMENDATION: Recommend ultrasound-guided biopsy.
== END 2024-03-23 14:37 | disposition home or self-care (01) ==
PROVIDERS: Visit Provider Obstetrics & Gynecology
DX: N63.20 Unspecified lump in the left breast, unspecified quadrant (principal); N64.4 Mastodynia; R92.8 Other abnormal and inconclusive findings on diagnostic imaging of breast
CPT/HCPCS: 76642

== ENCOUNTER 2025-07-23 09:19 | Outpatient (CLI) | payer BC, SELFPAY ==
[2025-07-23 10:20] LABS: Hemoglobin A1C 5.2 % (<5.7)
[2025-07-23 10:27] LABS: Iron 82 ug/dL (37-170)
--- OUTSIDE RECORDS SUMMARY | 2025-07-23 10:32 | XMS_ITS | Clinical Summary ---
Author Organization [facility] Address [facility] [place] [address] Care Team Providers Care Artificial Glass Eye Maker Name Role Phone Boo Clarke MD Primary Care Provider [phone] Allergies No known active allergies Medications Blood Pressure Kit 1 kit by Does not apply route 2 (two) times a day. Follow up in clinic in 7 days for a blood pressure check. Please call the office to confirm your appointment. If you are on blood pressure medications, please continue taking them as prescribed. You should check your blood pressure twice a day and keep a record of your readings. Please bring those records to your appointments. If your systolic (top number) is over 150, or your diastolic (bottom number) is over 100, then wait 15 minutes and take your blood pressure again. If you get the same or higher numbers, call the office. If your systolic (top number) is over 160, or your diastolic (bottom number) is over 110, call the office immediately. Additionally, call immediately if you experience any of the following: severe headache, visual disturbances, chest pain, shortness of breath, severe abdominal pain, seizures, nausea or vomiting, swelling in your hands and face, or gain more than 5 pounds (2.3 kg) in a week. 1 kit 0 Active Active Problems Problem Noted Date Diagnosed Date Encounter for induction of labor 09/22/2020 Elevated blood pressure affe cting in third trimester, antepartum 09/18/2020 Family History Medical History Relation Comments irregular heartbeat Mother Relation Status Comments Father Alive Mother Alive Social History Tobacco Use Types Packs/Day Years Used Date Smoking Tobacco: Never Smokeless Tobacco: Never Tobacco Cessation:Counseling Given: Not Answered Alcohol Use Standard Drinks/Week Comments Not Currently 0 (1 standard drink = 0.6 oz pur e alcohol) Humiliation, Afraid, Rape, and Kick questionnair e Answer Date Recorded Within the last year, have y ou been afraid of your partner or ex-partner? Patient declined 09/22/2020 Within the last year, have y ou been humiliated or emotionally abused in other ways by your partner or ex-partner? Patient declined 09/22/2020 Within the last year, have y ou been kicked, hit, slapped, or otherwise physically hurt by your partner or ex-partner? Patient declined 09/22/2020 Within the last year, have y ou been raped or forced to have any kind of sexual activity by your partner or ex-partner? Patient declined 09/22/2020 Social Connection and Isolation Panel Answer Date Recorded In a typical week, how many times do you talk on the phone with family, friends, or neighbors? Patient declined 09/22/2020 How often do you get togethe r with friends or relatives? Patient declined 09/22/2020 How often do you attend latter-day or holiness serv ices? Patient declined 09/22/2020 Do you belong to any clubs o r organizations such as latter-day groups, unions, fraternal or athletic groups, or school groups? Patient declined 09/22/2020 How often do you attend meet ings of the clubs or organizations you belong to? Patient declined 09/22/2020 Are you , , di vorced, , never , or living with a partner? Patient declined 09/22/2020 AUDIT-C Answer Date Recorded Frequency of Alcohol Consumption Never 11/05/2019 Average Number of Drinks Not on file 020 Frequency of Binge Drinking Not on file 12/2019 Overall Financial Resource Strain (CARDIA) Answe r Date Recorded How hard is it for you to pa y for the very basics like food, housing, medical care, and heating? Patient declined 09/22/2020 Exercise Vital Sign Answer Date Recorde d On average, how many days pe r week do you engage in moderate to strenuous exercise (like a brisk walk)? Patient declined On average, how many minutes do you engage in exercise at this level? Patient declined 09/22/2020 Hunger Vital Sign Answer Date Recorded Within the past 12 months, y ou worried that your food would run out before you got the money to buy more. Patient declined Within the past 12 months, t he food you bought just didn't last and you didn't have money to get more. Patient declined PRAPARE - Transportation Answer Date Re corded In the past 12 months, has l ack of transportation kept you from medical appointments or from getting medications? Patient declined 09/22/2020 In the past 12 months, has l ack of transportation kept you from meetings, work, or from getting things needed for daily living? Patient declined 09/22/2020 Depression Answer Date Recor ded Last EPDS Total Score 0 09/24/2020 Last EPDS Self Harm Result Never 09/24 Comments No Sex and Gender Information Value Date Recorded Sex Assigned at Not on file Legal Sex Female 9:18 PM SALES OPERATIONS ASSISTANT Gender Identity Not on file Sexual Orientation Not on file Last Filed Vital Signs Vital Sign Reading Time Taken Comments Blood Pressure 121/80 10/21/2022 3:26 PM SALES OPERATIONS ASSISTANT Pulse 87 10/21/2022 3:26 PM SALES OPERATIONS ASSISTANT Temperature 36.7 C (98.1 F) 10/21/2022 12:36 PM SALES OPERATIONS ASSISTANT Respiratory Rate 16 10/21/2022 3:26 PM SALES OPERATIONS ASSISTANT Oxygen Saturation 98% 10/21/2022 3:26 PM SALES OPERATIONS ASSISTANT Inhaled Oxygen Concentration - - Weight 77.1 kg (170 lb) 10/21/2022 12:36 PM SALES OPERATIONS ASSISTANT Height 172.7 cm (5' 8) 10/21/2022 12:36 PM SALES OPERATIONS ASSISTANT Body Mass Index 25.85 10/21/2022 12:36 PM SALES OPERATIONS ASSISTANT Plan of Treatment Health Maintenance Due Date Last Done Comments Cervical Cancer Screening Pa p Smear (Age 21 to 29) Every 3 Years 1999 Cervical Cancer Screening 1999 Annual Physical 2002 HPV Vaccines (2 - 2-dose series) 11/08/2014 05/08/2014 Hepatitis C 2017 DTaP, Tdap and Td Vaccines ( 4 - Tdap) 2018 08/16/2000, 03/07/2000, 1999 Hepatitis B Vaccines (1 of 3 - 19+ 3-dose series) 2018 PHQ-2 (Physician Saltese) 10/03/2024 COVID-19 Vaccine (2024-2 6 season) 2025 Influenza Adult (#1) 2025 07/06/2019 Meningococcal Vaccine Completed 12/08/2017 , 11/16/2016 Chlamydia Screening Females ages 16-24 Discontinued 11/19/2019 Hepatitis A Vaccines Aged Out No long er eligible based on patient's age to complete this topic Meningococcal B Vaccine Aged Out No l onger eligible based on patient's age to complete this topic Pneumococcal Vaccine: Pediatrics (0 to 5 Years) and At-Risk Patients (6 to 49 Years) Aged Out No longer eligible based on patient's age to complete this topic RSV Immunizations Under 20 Months Aged Out No longer eligible based on patient's age to complete this topic Procedures Procedure Name Priority Date/Time Associated Diagnosis Comments CHLAMYDIA GC RNA TIMED 11/19/2019 9:37 AM SALES OPERATIONS ASSISTANT from Last 3 Months or Most Recently Relevant to Health Maintenance Results * CHLAMYDIA GC RNA (11/19/2019 9:37 AM SALES OPERATIONS ASSISTANT) SPECIMEN VAGINAL SPECIMEN 11/19/2019 3:08 PM SALES OPERATIONS ASSISTANT [facility] CHLAMYDIA RNA TMA NEGATIVE NEGATIVE 020 2:37 PM SALES OPERATIONS ASSISTANT [facility] Comment:PERFORMED BY NUCLEIC ACID AMPLIFICATION N.GONORRHOEAE RNA TMA NEGATIVE NEGATIVE 11/20/2019 2:37 PM SALES OPERATIONS ASSISTANT [facility] Comment:PERFORMED BY NUCLEIC ACID AMPLIFICATION 11/19/2019 9:37 AM SALES OPERATIONS ASSISTANT us Mckay Rodriguez DO MICROBIOLOGY - GENERAL ORD ERABLES Final Result [facility] [address] [place] [address], [place] [phone] [facility] [address] [place] [address], [place] [phone] [id number] from Last 3 Months or Most Recently Relevant to Health Maintenance Insurance [employer] MEDICAID [employer] [address] [place] [id number] Advance Directives * Full Code (Latest Code Status on File) Date Activated Date Inactivated Comments 09/22/2020 10:34 AM 09/24/2020 4:59 PM Care Teams Artificial Glass Eye Maker Relationship Specialty Start Date End Date Boo Clarke MD [address] [place] [address] PCP - General FAMILY PRACTICE 07/08/18
[2025-07-23 10:36] LABS: Percent Iron Saturation 22 % (20-50)
[2025-07-23 11:08] LABS: Ferritin 39.70 ng/mL (6.24-137)
[2025-07-23 11:11] LABS: Thyroid Stimulating Hormone Reflex 2.260 uIU/mL (0.465-4.68)
[2025-07-24 10:08] LABS: FSH 5.8 mIU/mL (.); LH 3.6 mIU/mL (.)
[2025-07-26 04:07] LABS: Free Testosterone (Direct) 2.6 pg/mL (0.0-4.2)
[2025-07-30 14:08] LABS: Estradiol, Sensitive 11.8 pg/mL (.)
== END 2025-07-23 09:20 | disposition home or self-care (01) ==
LOC: ANHLAB 09:20
PROVIDERS: Visit Provider Obstetrics & Gynecology
DX: N92.6 Irregular menstruation, unspecified (principal); L68.0 Hirsutism; R63.5 Abnormal weight gain
CPT/HCPCS: 36415; 82627; 82670; 82728; 83001; 83002; 83036; 83525; 83527; 83540; 83550; 84144; 84146; 84270; 84402; 84403; 84443

== ENCOUNTER 2025-09-18 10:14 | Emergency (ER) | payer BC, SELFPAY ==
--- NOTE | ~2025-09-18 | XR_ITS ---
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 Findings: No acute fracture or malalignment. No significant degenerative changes. Soft tissues unremarkable. Impression: No acute fracture or malalignment. Reviewed, dictated and finalized at location P. WELDER APPRENTICE Impression: No acute fracture or malalignment.
[2025-09-18 10:24] VITALS: BP 120/75; PULSE 65; RESP 18; TEMP 36.3; O2SAT 98
--- NOTE | 2025-09-18 11:07 | ED_ITS ---
HPI - Extremity Injury (Upper) General Chief Complaint: Extremity Injury, Upper Stated Complaint: Left thumb Time Seen by Provider: 09/18/25 10:45 Source: patient and RN notes reviewed Mode of arrival: ambulatory Limitations: no limitations History of Present Illness HPI narrative: 24-year-old female presents [facility] complaining of left thumb injury yesterday. 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 Patient reports she heard a loud pop to her left thumb followed by obvious deformity to her thumb, she said she went to grab her thumb and it popped back into place. Since then the patient reports having pain to the proximal end of her thumb. Patient denies any numbness or tingling, or any other injuries. Patient reports pain with movement of her left thumb. Patient denies any significant past medical problems. Related Data Allergies Allergy/AdvReac Type Severity Reaction Status Date / Time No Known Allergies Allergy Verified 09/18/25 10:19 Review of Systems Review of Systems: CONSTITUTIONAL: Denies fever, chills, or sweats. EYES: Denies visual changes, redness, or discharge. ENT: Denies rhinorrhea, congestion, sore throat, or otalgia. CARDIOVASCULAR: Denies chest pain, palpitations, or edema. RESPIRATORY: Denies cough or dyspnea. GASTROINTESTINAL: Denies abdominal pain, nausea, vomiting, or diarrhea. GENITOURINARY: Denies dysuria or hematuria. SKIN: Denies rash, wound, or itching. MUSCULOSKELETAL: Denies back pain, joint pain, or myalgia. Positive for left thumb injury NEUROLOGIC: Denies headache, numbness, or weakness. PSYCHIATRIC: Denies anxiety or depression. All other systems reviewed are negative, except as documented in HPI. 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 S/P breast biopsy, left (04/11/24) left breast core biopsy / Benign History of tubal ligation 06/20/2023 Family History Family History Other Heart disease Lung cancer Social History Social History Smoking status: Never smoker Alcohol intake: never Substance use: never Substance use type: does not use Lack of Transportation: No Lack of Food: Never True Current Housing: I Have Housing Concerned About Future Housing: No Difficulty Paying Gas/Electric Bills: No Difficulty Paying for Meds: No Currently Unemployed: No Education: High School Diploma/GED Difficulty w/ Childcare or Family Care: No Living arrangements: with family Additional living arrangements comments: boyfriend & son Occupation/Education: occupation 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 There is no relevant family history pertinent to the patient complaint. Exam 2 Narrative: GENERAL: This is a well-nourished, well-developed adult, in no apparent distress. They are non ill-appearing, nontoxic appearing. HEAD: normocephalic, atraumatic. EYES: Sclera clear/white. Vision is grossly intact. Conjunctiva normal. Extraocular movement intact. EARS: External ears normal Hearing grossly intact. NOSE: External nose normal THROAT: Mucous membranes moist NECK: Neck supple CARDIOVASCULAR: Regular rate and rhythm RESPIRATORY: Respiratory rate normal, respiratory effort nonlabored, no respiratory distress NEURO: awake, alert, and oriented to person, place and time. There were no obvious focal neurologic abnormalities. EXTREMITIES: Left thumb: No obvious deformity, injury, swelling, bruising, redness. Limited range of motion due to pain. Patient able to flex and extend against her distance at the DIP and MCP joint. Proximal thumb is tender to palpate. Capillary refill less than 3 seconds. Left radial Pulse 2 +palpable. Normal sensation. Neurovascular status intact distal injury. Radial, ulnar, median nerve distribution intact. BACK: Nontender without deformity. Course Course Level of Care: Express Care Visit Vital Signs Vital signs: Vital Signs Temperature 97.3 F L 09/18/25 10:24 Pulse Rate 65 09/18/25 10:24 Respiratory Rate 18 09/18/25 10:24 Blood Pressure 120/75 09/18/25 10:24 Pulse Oximetry 98 09/18/25 10:24 Oxygen Delivery Room Air 09/18/25 10:24 Temperature 97.3 F L 09/18/25 10:24 Pulse Rate 65 09/18/25 10:24 Respiratory Rate 18 09/18/25 10:24 Blood Pressure 120/75 09/18/25 10:24 Pulse Oximetry 98 09/18/25 10:24 Oxygen Delivery Room Air 09/18/25 10:24 Procedures Orthopedic Splinting/Casting Injury #1: Splinting/Casting Date: 09/18/25 Splinting/Casting Time: 11:05 Side: left Upper Extremity Injury Location: finger (Thumb) Splint: customized in ED Pre-Formed: sling OCL: thumb spica Pre-Procedure Neuro Vascular Exam: normal Post-Procedure Neuro Vascular Exam: normal MDM MDM Narrative Medical decision making narrative: X-ray left thumb negative for any fractures or acute findings, no obvious dislocation on imaging. Patient likely successfully reduced her own thumb last night. There is concerned she might have dislocated thumb, will place patient on thumb spica splint and will refer to Ortho/hand specialist. Discussed physical exam findings. Advised supportive measures and signs/symptoms to go to the ER. Pt is appropriate for outpt treatment and f/u. Differential Diagnosis Differential Diagnosis: Thumb dislocation, thumb fracture, thumb sprain, Imaging Data Radiologist's impression: ITS Impressions Finger X-Ray 09/18/25 10:41 Impression: No acute fracture or malalignment. Critical Care Time Critical Care Time Critical Care Time: No Discharge Plan Discharge Clinical Impression: Closed dislocation of left thumb Qualifiers: Encounter type: initial encounter Qualified Code(s): S63.105A - Unspecified dislocation of left thumb, initial encounter Patient Disposition: Home Condition: Stable Instructions: Antibiotic Form, Finger Dislocation (ED) Additional Instructions: The x-ray your left thumbs negative for any fracture or acute findings, your thumb no longer appears dislocated Wear the thumb spica splint at all times, do not get it wet, cover while showering. Do not remove until your evaluated by ortho or hand specialist. Wear the sling as needed for comfort. Take Tylenol ibuprofen as needed for pain. Follow instructions on the bottle. Follow-up with hand specialist ortho in 2-3 days for re-evaluation. Go to the ER for any severe pain, numbness, tingling, cold or blue fingers, or any serious concerns. Patient Language: Sudanese Prescriptions: No Action metformin 500 mg tablet 500 mg PO DAILY Qty: 90 3RF spironolactone 50 mg tablet 50 mg PO DAILY Qty: 90 1RF Follow-up/Referrals: Santiago Ingram MD [Physician, Plastic Surgery] - 2 Days Clinical Impression: Closed dislocation of left thumb Truman Dumont MD [Physician, Orthopedics] - 2 Days Clinical Impression: Closed dislocation of left thumb Kameron Michael MD [Primary Care Provider, [facility]] Time of Disposition: 11:01
== END 2025-09-18 11:07 | disposition home or self-care (01) ==
PROVIDERS: PCP Emergency Medicine
DX: S63.105A Unspecified dislocation of left thumb, initial encounter (principal); W07.XXXA Fall from chair, initial encounter
CPT/HCPCS: 29125; 73140; 99214; A4565; G0463